=== PATIENT | male | born 1980 | race Caucasian/White ===

== ENCOUNTER → 2016-09-15 | Outpatient (CLI) | payer OTHER | LOC: RAD 14:27 | PROVIDERS: ATTEND Family Medicine | DX: R10.32 Left lower quadrant pain (principal); K76.0 Fatty (change of) liver, not elsewhere classified; R16.1 Splenomegaly, not elsewhere classified; Q24.0 Dextrocardia | CPT/HCPCS: 74178; Q9967 ==

== ENCOUNTER → 2016-09-15 | Outpatient (REF) | payer OTHER ==
[2016-09-15 13:57] LABS: ALBUMIN 5.2 g/dL (3.4-5.0); ALKALINE PHOSPHATASE 82 U/L (38-126); BUN/CREATININE RATIO 13 (10-20); CALCULATED IONIZED CALCIUM 3.9 mg/dL (3.8-4.6); MEAN CORPUSCULAR HEMOGLOBIN 31.2 PG (26.0-34.0); MEAN CORPUSCULAR HGB CONC 35.1 g/dL (31.0-37.0); MEAN CORPUSCULAR VOLUME 89 FL (80-100); MEAN PLATELET VOLUME 9.6 FL (6.0-9.5); PLATELET COUNT 247 10^3uL (150-450); TOTAL PROTEIN 8.5 g/dL (6.4-8.5); WHITE BLOOD COUNT 2.26 10^3uL (4.0-11.0)
[2016-09-15 14:00] LABS: BILIRUBIN,URINE 1+ (Negative); CLARITY,URINE Clear; COLOR,URINE Yellow; GLUCOSE, URINE (UA) Negative (Negative); LEUKOCYTE ESTERASE, URINE Negative (Negative); PH,URINE 5.5 (5.0 - 8.0); UROBILINOGEN,URINE 0.2 mg/dL (0.2-1.0)
[2016-09-15 14:01] LABS: BAND NEUTROPHILS % 0 % (0-6); EOSINOPHILS % 1 % (0-4); LYMPHOCYTES # 1.8 #; MONOCYTES # 0.2 #; MONOCYTES % 12 % (3-11); RBC MORPH NORMAL (NORMAL); SEGMENTED NEUTROPHILS % 5 % (51-67); TOTAL CELLS COUNTED 100
[2016-09-15 14:09] LABS: RBC,URINE 0-2 /HPF; URINE CENTRIFUGED VOLUME 12 mL
[2016-09-15 14:33] LABS: ERYTHROCYTE SEDIMENTATION RT* 38 mm/hr (0-12)
== END ==
LOC: LAB 13:51
PROVIDERS: ATTEND Nurse Practitioner Family
DX: R10.32 Left lower quadrant pain (principal)
CPT/HCPCS: 80053; 81003; 81015; 85025; 85652

== ENCOUNTER → 2016-09-23 | Outpatient (CLI) | payer OTHER ==
[2016-09-23 07:58] LABS: ALBUMIN 4.7 g/dL (3.4-5.0); CALCULATED IONIZED CALCIUM 3.8 mg/dL (3.8-4.6); TOTAL PROTEIN 8.2 g/dL (6.4-8.5)
== END ==
LOC: LAB 07:14
PROVIDERS: ATTEND Family Medicine
DX: R74.8 Abnormal levels of other serum enzymes (principal); E78.4 Other hyperlipidemia
CPT/HCPCS: 36415; 80053; 80061

== ENCOUNTER → 2016-09-26 | Outpatient (REF) | payer OTHER | LOC: LAB 15:31 | PROVIDERS: ATTEND Family Medicine | DX: R73.09 Other abnormal glucose (principal) | CPT/HCPCS: 83036 ==

== ENCOUNTER → 2016-10-04 | Outpatient (CLI) | payer OTHER ==
[2016-10-04 15:18] VITALS: BP 149/85
== END ==
LOC: MHUC 10:45
PROVIDERS: ATTEND Physician Assistant
DX: H61.23 Impacted cerumen, bilateral (principal)
CPT/HCPCS: 99213

== ENCOUNTER 2016-12-02 17:34 | Emergency (ER) | payer OTHER ==
[~2016-12-02] VITALS: Ht 180.3 cm; Wt 112.1 kg
[~2016-12-02 17:34] MED LIST: AZIT250T81 PO; BENZ-22 PO
--- OUTSIDE RECORDS SUMMARY | 2016-12-02 17:39 | XMS REPORT | Continuity of Care Document ---
Author Author [facility] Address Unknown Phone Unavailable Care Team Providers Care Release Specialist Name Role Phone SUHA BARCENAS MD PCP [phone] Insurance Providers Payer Name Policy Number Subscriber Name Relationship 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 Social History Query Response Start Date Stop Date Smoking Status Never smoker Hospital Discharge Instructions No hospital discharge instructions. Plan of Care Discharge Date 06/02/16 1:19pm Disposition 02 XFER [facility] HOSP - ACUTE Condition at Discharge Stable Prescriptions See Medication Section Referrals SUHA BARCENAS MD - Additional Instructions/Education Some of your test results may not be complete prior to your leaving the Emergency Department. The Emergency Department is not authorized to give test results over the phone. Please contact the doctor's office listed in this packet of information for your final results. Follow up with your primary care physician or return to the Emergency Department for worsening or worrisome symptoms. * Emergency Department phone number: [phone], x [phone]* MEDICAL RECORD If you need copies of your X-rays, call [phone]. If you need copies of your medical record, including lab results, a signed authorization for release of records will be required. A telephone call for release of Health Information is not allowed. BILLING Billing can sometimes be confusing and frustrating. To help avoid confusion in the future, please take a moment to acquaint yourself with the billing parties for services. SERVICE BILLING [employer]AT Emergency Room Services [facility] Physician Services [facility] X-[facility] Patients will receive bills for services from the appropriate provider. If you have any questions about your [facility] bill, our staff will be happy to assist you. Please call [phone], and ask for the billing department. THANK YOU for choosing [facility] as your emergency care provider! Care Plan and Goals ~~Discharge Care Plan~~ Problem: Abdominal pain Goal: Decreased level of pain. Return to usual activities. Instructions: Take medication(s) as directed; follow up with primary care physician as directed; follow patient home care instructions. Functional Status No functional status results. Allergies, Adverse Reactions, Alerts Allergen Type Severity Reaction Status Last Updated Penicillin Allergy Unknown Active 06/02/16 Immunizations No immunization records. Vital Signs Acute Vital Signs Vital Response Date/Time Temperature (Fahrenheit) 96.7 06/02/2016 1:15pm Pulse 104 bpm 06/02/2016 1:15pm Respirations 16 06/02/2016 1:15pm Height 5 ft 11 in Weight 246 lb Body Mass Index 34.0 kg/m^2 Results Laboratory Results Test Name Result Units Flags Reference Collection Date/Time Result Date/ Time Comments White Blood Count 2.87 10^3uL L 4.0-11.0 06/02/2016 11:30am 06/02/2016 11:57am Red Blood Count 5.59 10^6uL H 4.50-5.50 06/02/2016 11:30am 06/02/2016 11 :57am Hemoglobin 17.8 g/dL H 13.5-17.0 06/02/2016 11:30am 06/02/2016 11:57am Hematocrit 48.90 % 39.00-50.00 06/02/2016 11:30am 06/02/2016 11:57am Mean Corpuscular Volume 88 FL 80-100 06/02/2016 11:30am 06/02/2016 11: 57am Mean Corpuscular Hemoglobin 31.8 PG 26.0-34.0 06/02/2016 11:30am 2015 11:57am Mean Corpuscular Hemoglobin Concent 36.4 g/dL 31.0-37.0 06/02/2016 11: 30am 06/02/2016 11:57am Red Cell Distribution Width 12.6 % 11.8-15.6 06/02/2016 11:30am 2015 11:57am Platelet Count 211 10^3uL 150-450 06/02/2016 11:30am 06/02/2016 11: 57am Mean Platelet Volume 9.9 FL H 6.0-9.5 06/02/2016 11:30am 06/02/2016 11: 57am Differential Total Cells Counted 100 06/02/2016 11:30am 06/02/2016 11:57am Segmented Neutrophils % 19 % L 51-67 06/02/2016 11:30am 06/02/2016 11: 57am Band Neutrophils % 0 % 0-6 06/02/2016 11:30am 06/02/2016 11:57am Lymphocytes % (Manual) 54 % H 20-46 06/02/2016 11:30am 06/02/2016 11: 57am Monocytes % (Manual) 23 % H 3-11 06/02/2016 11:30am 06/02/2016 11:57am Eosinophils % (Manual) 4 % 0-4 06/02/2016 11:30am 06/02/2016 11:57am Basophils % (Manual) 0 % 0-2 06/02/2016 11:30am 06/02/2016 11:57am Neutrophils # 0.6 # 06/02/2016 11:30am 06/02/2016 11:57am Absolute Band Neutrophils 0.0 # 06/02/2016 11:30am 06/02/2016 11: 57am Lymphocytes # 1.5 # 06/02/2016 11:30am 06/02/2016 11:57am Monocytes # 0.5 # 06/02/2016 11:30am 06/02/2016 11:57am Eosinophils # 0.1 # 06/02/2016 11:30am 06/02/2016 11:57am Basophils # (Manual) 0.0 # 06/02/2016 11:30am 06/02/2016 11:57am Blood Morphology Comment NORMAL NORMAL 06/02/2016 11:30am 06/02/2016 11:57am Urine Collection Type CLEAN CATCH 06/02/2016 10:52am 06/02/2016 11: 47am Urine Color Dark Yellow 06/02/2016 10:52am 06/02/2016 11:47am Urine Clarity Clear 06/02/2016 10:52am 06/02/2016 11:47am Urine pH 5.5 5.0 - 8.0 06/02/2016 10:52am 06/02/2016 11:47am Urine Specific [place] 1.020 1.005-1.030 06/02/2016 10:52am 2015 11:47am Urine Protein Negative Negative 06/02/2016 10:52am 06/02/2016 11: 47am Urine Glucose (UA) Negative Negative 06/02/2016 10:52am 06/02/2016 11 :47am Urine RBC (Auto) Negative Negative 06/02/2016 10:52am 06/02/2016 11: 47am Urine Ketones Negative Negative 06/02/2016 10:52am 06/02/2016 11: 47am Urine Nitrite Negative Negative 06/02/2016 10:52am 06/02/2016 11: 47am Urine Bilirubin 2+ H Negative 06/02/2016 10:52am 06/02/2016 11:47am [place], [place] metabolite and atypical colors may interfere with the interpretation of the Bilirubin reaction. Further testing is required for confirmation. Urine Urobilinogen 1.0 mg/dL 0.2-1.0 06/02/2016 10:52am 06/02/2016 11: 47am Urine Leukocyte Esterase Negative Negative 06/02/2016 10:52am 2015 11:47am Sodium Level 151 mmol/L H 135-150 06/02/2016 11:00am 06/02/2016 11:48am Potassium Level 3.9 mmol/L 3.5-5.1 06/02/2016 11:00am 06/02/2016 11: 48am Chloride Level 100 mmol/L 98-108 06/02/2016 11:00am 06/02/2016 11:48am Carbon Dioxide Level 25 mmol/L 22-29 06/02/2016 11:00am 06/02/2016 11: 48am Anion Gap 29.1 MEQ/L H 3-15 06/02/2016 11:00am 06/02/2016 11:48am Blood Urea Nitrogen 12 mg/dL 7-06/02/2016 11:00am 06/02/2016 11: 48am Creatinine 1.07 mg/dL 0.8-1.5 06/02/2016 11:00am 06/02/2016 11:48am BUN/Creatinine Ratio 11 04-2806/02/2016 11:00am 06/02/2016 11:48am Estimat Glomerular Filtration Rate 94.6 06/02/2016 11:00am 2015 11:48am Estimated GFR (Non- 78.2 06/02/2016 11:00am 2015 11:48am Glucose Level 98 mg/dL 70-110 06/02/2016 11:00am 06/02/2016 11:48am Calculated Osmolality 290 mosm/L 280-300 06/02/2016 11:00am 06/02/2016 11:48am Calcium Level 8.4 mg/dL # L 8.8-10.8 06/02/2016 11:00am 06/02/2016 11: 48am Calcium/Ionized Calcium Ratio 3.1 mg/dL L 3.8-4.6 06/02/2016 11:00am 11:48am Total Bilirubin 5.1 mg/dL # H 0.1-1.0 06/02/2016 11:00am 06/02/2016 11: 48am Alkaline Phosphatase 128 U/L H 38-126 06/02/2016 11:00am 06/02/2016 11: 48am Aspartate Amino Transf (AST/SGOT) 532 U/L H 15-37 06/02/2016 11:00am 11:48am Alanine Aminotransferase (ALT/SGPT) 948 U/L H 30-65 06/02/2016 11:00am 06/02/2016 11:48am Total Creatine Kinase 95 U/L 55-170 06/02/2016 11:00am 06/02/2016 11: 48am Creatine Kinase MB 0.8 ng/mL 0.0-6.0 06/02/2016 11:00am 06/02/2016 11: 48am Troponin I < 0.012 ng/mL 0.010-0.080 06/02/2016 11:00am 06/02/2016 11: 49am Total Protein 9.3 g/dL H 6.4-8.5 06/02/2016 11:00am 06/02/2016 11:48am Albumin 5.1 g/dL H 3.4-5.0 06/02/2016 11:00am 06/02/2016 11:48am Albumin/Globulin Ratio 1.214 1.1-1.8 06/02/2016 11:00am 06/02/2016 11 :48am Lipase 93 U/L 23-300 06/02/2016 11:00am 06/02/2016 11:48am C-Reactive Protein 1.30 mg/dL H 0.0-0.9 06/02/2016 11:00am 06/02/2016 11 :48am Procedures No known history of procedures. Encounters Encounter Location Arrival/Admit Date Discharge/Depart Date Attending Provider Departed Emergency Room [facility] 06/02/16 10:39am 06/02/16 1:19pm LILIAN WALLIS MD Recent Diagnosis
[2016-12-02 18:51] LABS: MEAN CORPUSCULAR HEMOGLOBIN 31.2 PG (26.0-34.0); MEAN CORPUSCULAR VOLUME 88 FL (80-100); MEAN PLATELET VOLUME 9.6 FL (6.0-9.5); PLATELET COUNT 228 10^3uL (150-450); WHITE BLOOD COUNT 2.88 10^3uL (4.0-11.0)
[2016-12-02 19:01] LABS: ALBUMIN 4.9 g/dL (3.4-5.0); ALKALINE PHOSPHATASE 67 U/L (38-126); ANION GAP 16.1 MEQ/L (3-15); BUN/CREATININE RATIO 18 (10-20); CALCULATED IONIZED CALCIUM 3.9 mg/dL (3.8-4.6); CREATINE KINASE 128 U/L (55-170); TOTAL PROTEIN 8.3 g/dL (6.4-8.5)
[2016-12-02 19:03] LABS: BILIRUBIN,URINE Negative (Negative); CLARITY,URINE Clear; COLOR,URINE Yellow; GLUCOSE, URINE (UA) Negative (Negative); LEUKOCYTE ESTERASE ,URINE Negative (Negative); UROBILINOGEN,URINE 0.2 mg/dL (0.2-1.0)
[2016-12-02 19:06] LABS: MEAN CORPUSCULAR HGB CONC 35.6 g/dL (31.0-37.0)
[2016-12-02 19:08] LABS: AMPHETAMINE SCREEN, URINE Negative (Negative); CANNABINOID SCREEN, URINE Negative (Negative); METHAMPHETAMINE SCREEN URINE S NEGATIVE (NEGATIVE); OPIATE SCREEN URINE Negative (Negative); PROPOXYPHENE STAT NEGATIVE (NEGATIVE)
--- NOTE | 2016-12-02 19:10 | Diagnostic Imaging Report ---
Indication: Dyspnea. Discussion: Two views of the chest were obtained, comparison 06/02/2016. Dextrocardia is again noted. No focal consolidation, pleural fluid or pneumothorax. No acute osseous abnormality. Impression: No acute cardiopulmonary process. Dextrocardia is again incidentally noted. Dictated by: Dictated on workstation # [id number]
[2016-12-02 19:21] LABS: BAND NEUTROPHILS % 1 % (0-6); LYMPHOCYTES # 1.7 #; SEGMENTED NEUTROPHILS % 18 % (51-67)
[2016-12-02 19:22] LABS: EOSINOPHILS % 4 % (0-4); MONOCYTES # 0.3 #; MONOCYTES % 17 % (3-11); RBC MORPH NORMAL (NORMAL); TOTAL CELLS COUNTED 100
[2016-12-02] MEDS ORDERED: ALPR.5T PO (19:25)
[2016-12-02 21:14] VITALS: BP 160/96
== END 2016-12-02 19:40 | disposition home or self-care (01) ==
LOC: ED 17:35
DX: F45.8 Other somatoform disorders (principal); F41.9 Anxiety disorder, unspecified
CPT/HCPCS: 36415; 71020; 80053; 80307; 81003; 82550; 82553; 83880; 84443; 84484; 85025; 85379; 86140; 93005; 93010; 99284; 99285